=== PATIENT | male | born 1955 | race Caucasian/White ===

== ENCOUNTER 2019-08-16 09:37 | Outpatient (CLI) | payer OTHER, SELFPAY ==
--- NOTE | 2019-08-16 10:50 | ECG_ITS ---
NAME OF STUDY: LEXISCAN SESTAMIBI STRESS TEST INDICATION: Chest Pain LEXISCAN STRESS TEST ORDERING PHYSICIAN: Beverley CLINICAL INFORMATION: Chest pain INTERPRETATION: 1. The patient was brought to the laboratory where Lexiscan was infused over 20 seconds. The resting blood pressure was 122/76. Maximum blood pressure was 129/78. The resting heart rate was 49 beats per minute. The maximum heart rate is 83 beats per minute. 2. The baseline electrocardiogram reveals sinus bradycardia and is a normal tracing 3. With Lexiscan infusion, there were no ST segment changes to suggest ischemia. 4. The patient experienced no symptoms or arrhythmias during the examination. CONCLUSION: 1. Unremarkable Lexiscan infusion. 2. Nuclear imaging to follow. Electronically Signed On 08-16-2019 14:16:19 CDT by Stefan Lowery M.D. [id number]
[2019-08-16 10:51] VITALS: BMI 31.7
--- NOTE | 2019-08-16 10:51 | NMCV_ITS ---
NM scotty perf SPECT r/s* [id number] Melecio Talbot Age: 63 Gender: M : 1955 Exam Date: 08/16/2019 10:48 Ordering Phys: Stefan Lowery MD ([email or web address]) Technologist: GUSTABO Acuña Exam Location: [facility] Indications: CHEST AND ARM PAIN STRESS TEST [facility] IMAGE PROTOCOL Rest/Stress 1 Lexiscan Day Radiopharmaceutical Dose (mCi) Administration Site Administered by Rest: Tc-99m 11.0 IV GUSTABO Acuña Sestamibi Stress:Tc-99m 31.9 IV Erin Summers, GUSTABO Sestamibi Rest: 16-Aug-2019 60 Discovery 630 Stress: 16-Aug-2019 30 Discovery 630 0.4mg Lexiscan. Images obtained in supine and prone position. SPECT RESULTS Technical Quality: Excellent Raw Data Analysis: Normal Image Corrections: No attenuation or motion correction applied Summed Stress Score: 1 Summed Rest Score: 2 Summed Difference Score: 0 PERFUSION FINDINGS Patchy areas of decreased tracer uptake was noted in the lateral wall and inferior wall regions. No significant reversibility was noted in these regions. FUNCTIONAL RESULTS (calculated via Gated SPECT) Stress Image LV EF (%): 80 Stress EDV (mL):82 TID: 1.02 Stress ESV (mL):16 FUNCTIONAL FINDINGS: Segmental wall motion analysis revealing no gross wall motion normalities IMPRESSIONS 1. Myocardial perfusion imaging revealing patchy areas of persistent decreased tracer uptake in the lateral wall and inferior wall regions, suggestive of myocardial scarring versus attenuation artifact. 2. Normal LV ejection fraction of 80%. 3. LV wall motion analysis revealing no gross wall motion abnormalities. 4. Normal LV volume. No significant coronary ischemia, based on the above findings Dr Michael Khan MD FACC (Electronically Signed) Final Date: 16 August 2019 17:08 S
--- NOTE | 2019-08-16 11:41 | SUR.PREOP ---
Patient reports no pain or discomfort prir to the start of the procedure.
[2019-08-16] MEDS: regadenoson 0.4 Mg/5 ml Syringe IVP (11:43)
[2019-08-16 12:00] VITALS: BP 134/73; PULSE 66
== END 2019-08-16 09:38 | disposition home or self-care (01) ==
LOC: RAD 09:41
PROVIDERS: Family Provider Nurse Practitioner Family; PCP Nurse Practitioner Family; Visit Provider Internal Medicine Cardiovascular Disease
DX: R07.9 Chest pain, unspecified (principal); M79.602 Pain in left arm
CPT/HCPCS: 78452; 93017; A9500; J2785

== ENCOUNTER 2019-11-18 03:05 | Emergency (ER) | payer OTHER, SELFPAY ==
[2019-11-18 03:10] VITALS: BP 221/109; PULSE 66; RESP 16; TEMP 36.6; O2SAT 96
--- NOTE | 2019-11-18 03:16 | ECG_ITS ---
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 Measurements Intervals Otto Rate: 61 P: 55 FL: 155 QRS: 24 QRSD: 106 T: 6 QT: 382 QTc: 387 Interpretive Statements SINUS RHYTHM POSSIBLE RIGHT VENTRICULAR CONDUCTION DELAY [RSR (QR) IN V1/V2] NONSPECIFIC T-WAVE ABNORMALITY No previous ECG available for comparison Electronically Signed On 11-18-2019 20:12:35 CDT by Clare Zuleta M.D. [id number]
--- NOTE | 2019-11-18 03:16 | XR_ITS ---
WS: [id number] PORTABLE CHEST HISTORY: Hypertension and chest pain. COMPARISON: 07/15/2011 Lungs are clear and well expanded. No pleural effusion or pneumothorax. Cardiac size: Normal. Mediastinum/Aorta: Normal mediastinum. No osseous abnormality seen. XR/XR chest 1V portable [id number] IMPRESSION: Unremarkable portable chest.
--- NOTE | 2019-11-18 03:24 | W.ED.GENADLT ---
HPI - General Adult General: Chief complaint: General Medical Stated complaint: bp issues Time Seen by Provider: 11/18/19 03:07 Source: patient Mode of arrival: ambulatory Limitations: no limitations History of Present Illness: HPI narrative: 63-year-old male states he had a headache since last night at 9 PM. Patient states that the pain is been off and on and is not the worst headache of his life. States pain is currently 7 out of 10. He states he took his blood pressure and was hypertensive. He takes blood pressure meds at home and did take one tonight. He states his blood pressures continue to be high. He denies any chest pain to me. Associated symptoms: Reports headache(s); Deny chest pain, dyspnea, nausea, rash or vomiting Review of Systems Const: Denies: fever(s), chills, body aches or change in appetite Eyes: Denies: blurry vision or eye discomfort ENMT: Denies: throat pain or dental pain Card: Denies: chest pain Resp: Denies: dyspnea GI: Denies: abdominal pain, nausea, vomiting or diarrhea : Denies: dysuria Musc: Denies: neck pain or back pain Skin/Breast: Denies: rash Neuro: Reports: headache(s) Psych: Denies: depression Timi/Lymph: Denies: easy bruising All/Imm: Denies: urticaria PFSH ED PFSH: Medical History (Updated 11/18/19 @ 04:35 by Brie Niño MD) Atrial fibrillation HTN (hypertension) Family History Father CAD (coronary artery disease) Myocardial infarction S/P PTCA (percutaneous transluminal coronary angioplasty) Brother CAD (coronary artery disease) Myocardial infarction S/P PTCA (percutaneous transluminal coronary angioplasty) Sister CAD (coronary artery disease) S/P PTCA (percutaneous transluminal coronary angioplasty) Mother Hypertension Social History Smoking and tobacco status: current every day smoker smokeless tobacco Household members: spouse Marital status: service: No Current occupational status: employed Physical Exam Const: COMMON NORMALS: no acute distress, patient oriented x3 and healthy appearing HENMT: COMMON NORMALS: normocephalic and atraumatic HEAD & SCALP: normocephalic and atraumatic Eye: COMMON NORMALS: Equal, round and reactive pupils present and EOMs intact bilaterally PUPIL: Yes Equal, round and reactive pupils present Neck/C-Spine: COMMON NORMALS: full ROM and supple Chest: COMMONS NORMALS: normal inspection of the chest and normal palpation of entire chest wall Resp: COMMON NORMALS: normal respiratory effort, No retractions, No use of accessory muscles and clear to auscultation bilaterally AUSCULTATION: clear to auscultation bilaterally Cardio: COMMON NORMALS: regular rate, regular rhythm and No murmurs present (Cardio) RATE: regular rate RHYTHM: regular rhythm GI: COMMON NORMALS: Normal to inspection, nondistended, normoactive bowel sounds present, Soft to palpation, non-tender and no masses PALPATION: Yes Soft to palpation Extremity: COMMON NORMALS: normal to inspection and full ROM Neuro: COMMON NORMALS: patient oriented x3, moves all extremities and no focal motor deficits Psych: COMMON NORMALS: mental status grossly normal, Normal thought process present and cooperative THOUGHT PROCESS: Normal thought process present Skin: COMMON NORMALS: no rashes or lesions noted and no wounds GENERAL SKIN EXAM: no rashes or lesions noted Course Vital Signs: Vital signs: Vital Signs Temperature 97.8 F 11/18/19 03:10 Pulse Rate 69 11/18/19 04:42 Respiratory Rate 18 11/18/19 04:42 Blood Pressure 159/76 11/18/19 04:42 Pulse Oximetry 96 11/18/19 04:42 MDM - General Adult MDM Narrative: Medical decision making narrative: Rosalio presents here with headache along with hypertension. Patient headache is resolved and he has no signs of subarachnoid hemorrhage. Patient's headache is not the worst headache of his life. He has no neck pain or stiffness. Patient's blood pressure here is improved he is to take a log and follow-up with his primary care doctor next week. He is return if worsening. He understands agrees to plan. Lab Data: Labs: Lab Results 11/18/19 11/18/19 11/18/19 Range/Units 03:40 03:40 03:40 WBC 7.8 (4.0-10.0) 10^3/ uL RBC 5.15 (4.1-5.3) 10^6/u L Hgb 15.3 (11.7-16.6) g/dL Hct 44.3 (42.0-52.0) % MCV 86.0 (80-94) fL MCH 29.7 (28.0-34.0) pg MCHC 34.5 (30.0-36.0) g/dL RDW 12.5 (12.1-15.1) % Plt Count 221 (130-400) 10^3/c mm MPV 10.3 (7.4-10.4) fL Neut % (Auto) 68.5 % Lymph % (Auto) 21.0 % Carter % (Auto) 8.5 % Eos % (Auto) 1.2 % Baso % (Auto) 0.3 % Neut # (Auto) 5.36 (1.8-7.7) 10^3/u L Lymph # (Auto) 1.6 (0.8-4.8) 10^3/u L Carter # (Auto) 0.7 (0.2-0.9) 10^3/u L Eos # (Auto) 0.1 (0.0-0.8) 10^3/u L Baso # (Auto) 0.0 (0.0-0.1) 10^3/u L Nucleated RBC % (a uto) 0 % Nucleated RBCs # 0.0 /100WBC Sodium 141 (136-145) mmol/L Potassium 3.8 (3.5-5.1) mmol/L Chloride 104 (98-107) mmol/L Carbon Dioxide 27 (22-29) mmol/L Anion Gap 13.8 (5-19) BUN 16 (8-23) mg/dL Creatinine 1.0 (0.7-1.2) mg/dL GFR Calculation 76.0 L (90-130) mL/min Glucose 114 (65-115) mg/dL Calculated Osmolal ity 289 (285-295) mOsm/k g Calcium 9.5 (8.5-10.5) mg/dL Total Bilirubin 0.7 (0.15-1.2) mg/dL AST 23 (0-40) U/L ALT 32 (0-41) U/L Alkaline Phosphata se 87 (40-130) IU/L Troponin T Baselin e 8 (0-15) ng/L Total Protein 7.1 (6.6-8.7) g/dL Albumin 4.4 (3.5-5.2) g/dL Globulin 2.7 (1.3-4.6) g/dL Imaging Data^: CXR: Attestation: I personally reviewed and interpreted this imaging study as follows: My impression: no acute anbormality CT Head: Radiologist's impression: [facility] [address] [place] [address] CT Scan Report Signed Patient: Melecio Talbot Unit #: [id number] : 1955 Age/Sex: 63 / M ADM Date: 11/18/19 Loc: ER Room/Bed: Attending Dr: Ordering Provider/Ordering MD: Brie Niño MD Date of Service: 11/18/19 Procedure(s): CT head wo con* [id number] Accession Number(s): [id number] Report Number: [id number] PROCEDURE INFORMATION: Exam: CT Head Without Contrast Exam date and time: 11/18/2019 3:26 AM Age: 63 years old Clinical indication: Pain; Vascular; Patient HX: Occipital headache with hypertension; Additional info: CHIRINOS TECHNIQUE: Imaging protocol: Computed tomography of the head without contrast. Radiation optimization: All CT scans at this facility use at least one of these dose optimization techniques: automated exposure control; mA and/or kV adjustment per patient size (includes targeted exams where dose is matched to clinical indication); or iterative reconstruction. COMPARISON: CT head wo con* [id number] 02/10/2015 4:58 PM RADIATION DOSE METRICS: Total DLP (mGy-cm): 786.64 FINDINGS: Brain: No acute intracranial hemorrhage or mass effect. No definite acute infarct by CT. Ventricles: Ventricle size is normal for age. Bones/joints: No definite acute skull fracture. Sinuses: Included paranasal sinuses are essentially clear. Mastoid air cells: No significant acute finding. CT/CT head wo con* [id number] IMPRESSION: 1. No acute intracranial hemorrhage or mass effect. 2. Other findings discussed above. EKG Data^: EKG 1: Attestation: I personally reviewed and interpreted this EKG as follows: EKG interpretation date: 11/18/19 EKG interpretation time: 03:31 Interpretation: nsr hr [address] or t wave abnormalities qrs 106 qtc 385 Computer generated interpretation: Head CT 11/18/19 03:25 IMPRESSION: 1. No acute intracranial hemorrhage or mass effect. 2. Other findings discussed above. Radiation Dose CTDIVOL = (mGy): DLP = 786.64 (mGy-cm) Discharge Plan Discharge Patient Disposition: Home Clinical Impression: Headache HTN (hypertension) Qualifiers: Hypertension type: essential hypertension Qualified Code(s): I10 - Essential (primary) hypertension Condition: Stable Prescriptions: No Action tamsulosin [Flomax] 0.4 mg capsule 0.4 mg PO DAILY RF: 0 finasteride 5 mg tablet 5 mg PO DAILY RF: 0 montelukast 10 mg tablet 10 mg PO DAILY RF: 0 sertraline 50 mg tablet 50 mg PO DAILY RF: 0 alprazolam [Xanax] 0.5 mg tablet 0.5 mg PO BID PRNRF: 0 aspirin [Aspir-81] 81 mg tablet,delayed release (DR/EC) 81 mg PO DAILY RF: 0 valsartan-hydrochlorothiazide 320-25 mg tablet 1 tab PO DAILY RF: 0 vitamin B complex PO DAILY RF: 0 cholecalciferol (vitamin D3) 2,000 unit tablet 2,000 unit PO DAILY RF: 0 diltiazem HCl 30 mg tablet 30 mg PO BID Qty: 180 RF: 3 Discharge Orders: Discharge Order (Routine); Ordered 11/18/19 Ordered By: Brie Niño Referrals: Samantha Knox APN [Primary Care Provider] - 1-3 days Discharge Diet: Advance as tolerated Discharge Activity: Resume usual activity Patient Instructions: Acute Headache (ED), Hypertension (ED) Discharge Date/Time: 11/18/19 04:43 Coding Level of Care Code ED Licensed Social Worker for Chg Fwd Exam Comprehensive
[2019-11-18 03:25] VITALS: BP 184/97; PULSE 59; RESP 15; O2SAT 98
[2019-11-18] MEDS: hyDRALAzine 20 mg/mL INJ 1 mL 10 MG IVP (03:36)
[2019-11-18 03:40] VITALS: BP 184/88; PULSE 59; RESP 14; O2SAT 98
[2019-11-18 03:46] LABS: Basophils % 0.3 %; Eosinophils # 0.1 10^3/uL (0.0-0.8); Eosinophils % 1.2 %; Hematocrit 44.3 % (42.0-52.0); Hemoglobin 15.3 g/dL (11.7-16.6); Lymphocytes # 1.6 10^3/uL (0.8-4.8); Mean Corpuscular HGB Conc 34.5 g/dL (30.0-36.0); Mean Corpuscular Hemoglobin 29.7 pg (28.0-34.0); Mean Platelet Volume 10.3 fL (7.4-10.4); Monocytes # 0.7 10^3/uL (0.2-0.9); Monocytes % 8.5 %; Neutrophils # 5.36 10^3/uL (1.8-7.7); Neutrophils % 68.5 %; Nucleated Red Blood Cells % 0 %; Platelet Count 221 10^3/cmm (130-400); Red Blood Count 5.15 10^6/uL (4.1-5.3); Red Cell Distribution Width 12.5 % (12.1-15.1); White Blood Count 7.8 10^3/uL (4.0-10.0)
--- NOTE | 2019-11-18 03:47 | PC.NURSE ---
patient to CT
--- NOTE | 2019-11-18 03:52 | PC.NURSE ---
patient back from CT
[2019-11-18 04:02] VITALS: BP 157/103; PULSE 65; RESP 16; O2SAT 97
[2019-11-18 04:03] LABS: Alanine Aminotransferase 32 U/L (0-41); Albumin Level 4.4 g/dL (3.5-5.2); Alkaline Phosphatase 87 IU/L (40-130); Anion Gap 13.8 (5-19); Aspartate Amino Transferase 23 U/L (0-40); Blood Urea Nitrogen 16 mg/dL (8-23); Calcium 9.5 mg/dL (8.5-10.5); Carbon Dioxide 27 mmol/L (22-29); Chloride 104 mmol/L (98-107); Globulin 2.7 g/dL (1.3-4.6); Glucose 114 mg/dL (65-115); Osmolality Calculated 289 mOsm/kg (285-295); Potassium 3.8 mmol/L (3.5-5.1); Sodium 141 mmol/L (136-145); Total Bilirubin 0.7 mg/dL (0.15-1.2); Total Protein 7.1 g/dL (6.6-8.7)
[2019-11-18 04:05] LABS: Troponin(5th) Baseline 8 ng/L (0-15)
[2019-11-18 04:12] VITALS: RESP 16; O2SAT 98
[2019-11-18] MEDS: ondansetron 2 mg/ML SDV 2 mL 4 MG IVP (04:12)
[2019-11-18] MEDS: morphine 4 mg/mL SDV 1 mL IVP (04:12)
[2019-11-18 04:42] VITALS: BP 159/76; PULSE 69; RESP 18; O2SAT 96
== END 2019-11-18 04:43 | disposition home or self-care (01) ==
PROVIDERS: Emergency Provider Emergency Medicine; PCP Nurse Practitioner Family
DX: R51 Headache (principal); I10 Essential (primary) hypertension; Z79.82 Long term (current) use of aspirin; I48.91 Unspecified atrial fibrillation; F17.210 Nicotine dependence, cigarettes, uncomplicated
CPT/HCPCS: 12345; 70450; 71045; 80053; 84484; 85025; 93005; 96374; 96375; 99283; 99284; J0360; J2270; J2405